=== PATIENT | female | born 1960 | race African-American/Black ===

== ENCOUNTER 2016-08-15 19:10 | Emergency (ER) | payer OTHER ==
--- NOTE | 2016-08-15 19:20 | PDOC ---
[id number] Initial Comments: 08/15/16 20:15 The patient is a 56 year old female with a significant past medical history of HLD and asthma who presents to the Emergency Department with complaints of head pain and neck pain for a few hours. She reports experiencing a sharp pressured pain in the back of her head and neck. She states that her symptoms started few hours ago while she was cooking. She reports taking pain medications for her headache, with no relief. Pt states that she had CT scan and MRI done in [facility] few months ago when she had the same headache, with no significant findings. Pt also reports experiencing intermittent back pain and she states that she was diagnosed with herniated disk in the past. She denies fever, chills, abdominal pain, nausea, vomiting, diarrhea, chest pain , SOB, dizziness, blurry vision. ALL: none (-) sick (+) flu shot <Nereyda Scruggs - Last Filed: 08/15/16 20:14> <Rosalia Jackson - Last Filed: 08/16/16 20:34> - General Chief Complaint: Pain, Acute Stated Complaint: HEAD PAIN Time Seen by Provider: 08/15/16 19:20 Past History <Nereyda Scruggs - Last Filed: 08/15/16 20:14> - Past Medical History Asthma: Yes Hypercholesterolemia: Yes - Immunization History Immunization Up to Date: Yes - Psycho/Social/Smoking Cessation Hx Anxiety: No Suicidal Ideation: No Smoking History: Never smoked Have you smoked in the past 12 months: No Hx Alcohol Use: No Drug/Substance Use Hx: No Substance Use Type: None <Rosalia Jackson - Last Filed: 08/16/16 20:34> - Past Medical History Allergies/Adverse Reactions: Allergies Allergy/AdvReac Type Severity Reaction Status Date / Time No Known Allergies Allergy Verified 08/15/16 19:15 Home Medications: Ambulatory Orders Simvastatin [Zocor -] 40 mg PO HS 08/13/15 Gabapentin [Neurontin -] 100 mg PO DAILY 08/15/16 Naproxen [Naprosyn -] 500 mg PO BID 08/15/16 Review of Systems - Review of Systems Able to Perform ROS?: Yes Comments:: 08/15/16 20:15 GENERAL/CONSTITUTIONAL: No: fever, chills, weakness, loss of appetite. HEAD, EYES, EARS, NOSE AND THROAT: No: change in vision, ear pain, discharge, sore throat, throat swelling. CARDIOVASCULAR: No: chest pain, lightheadedness, palpitations, syncope RESPIRATORY: No: cough, shortness of breath, wheezing, hemoptysis, stridor. GASTROINTESTINAL: No: nausea, vomiting, abdominal cramping, diarrhea, rectal bleeding, constipation. GENITOURINARY: No: dysuria, hematuria, frequency, urgency, flank pain. MUSCULOSKELETAL:Yes: neck pain, back pain No: muscle swelling or pain SKIN AND BREASTS: No: lesions, pallor, rash or easy bruising. NEUROLOGIC: Yes: headache No: vertigo, paresthesias, weakness ENDOCRINE: No: unexplained weight gain or loss HEMATOLOGIC/LYMPHATIC: No: anemia, easy bleeding, swelling nodes All Other Systems: Reviewed and Negative <Nereyda Scruggs - Last Filed: 08/15/16 20:14> *Physical Exam - Vital Signs Last Vital Signs Temp Pulse Resp BP Pulse Ox 98.1 F 94 H 20 160/90 99 08/15/16 19:19 08/15/16 19:19 08/15/16 19:19 08/15/16 19:19 08/15/16 19:19 - Physical Exam Comments: 08/15/16 20:16 GENERAL: The patient is in no acute distress. HEAD: Normal with no signs of trauma. EYES: PERRLA, EOMI, sclera anicteric, conjunctiva clear. ENT: Ears normal, nares patent, oropharynx clear without exudates. Moist mucous membranes. NECK: Normal range of motion, supple without lymphadenopathy, JVD, or masses. LUNGS: Breath sounds equal, clear to auscultation bilaterally. No wheezes, and no crackles. HEART:Regular rate and rhythm, normal S1 and S2 without murmur, rub or gallop. ABDOMEN: Soft, nontender, normoactive bowel sounds. No guarding, no rebound. EXTREMITIES: Normal range of motion, no edema. No clubbing or cyanosis. No erythema, or tenderness. NEUROLOGICAL: Cranial nerves II through XII grossly intact. Normal speech. No focal neurological deficits. MUSCULOSKELETAL: Back non-tender to palpation, no CVA tenderness SKIN: Warm, Dry, normal turgor, no rashes or lesions noted. <Nereyda Scruggs - Last Filed: 08/15/16 20:14> ED Treatment Course - LABORATORY CBC & Chemistry Diagram: 08/15/16 20:06 08/15/16 20:06 <Rosalia Jackson - Last Filed: 08/16/16 20:34> Medical Decision Making - Medical Decision Making 08/15/16 22:56 Patient Name: Sahara Blake THIS IS A PRELIMINARY REPORT FROM [facility] EXAM: CT head noncontrast IMAGES: 70 EXAM DATE AND TIME: 2016-08-15 21:37:19.0 REASON FOR EXAM: Headache COMPARISON: None. FINDINGS: No intra or extra-axial hemorrhage or collection. No mass lesion or midline shift. The ventricles are normal in size and are midline in position. Normal lao-white matter differentiation. The calvarium is intact. 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 THIS DOCUMENT HAS BEEN ELECTRONICALLY SIGNED 08/16/16 20:32 Pt comes with headache. States that she has a history of a chiari malformation and the GARCIA comes on and off. She was treated in the ER and responded well. CT head is WNL. I will refrain from tapping her at this time, as she has a chiari malformation. I discussed this with the patient and asked her to follow with the neurologists. Labs are normal <Rosalia Jackson - Last Filed: 08/16/16 20:34> *DC/Admit/Observation/Transfer - Attestations Scribe Attestion: 08/15/16 20:17 Documentation prepared by Nereyda Scruggs, acting as medical associate for Rosalia Jackson MD. <Nereyda Scruggs - Last Filed: 08/15/16 20:14> - Discharge Dispostion Admit: No <Rosalia Jackson - Last Filed: 08/16/16 20:34> Diagnosis at time of Disposition: Headache - Discharge Dispostion Disposition: HOME Condition at time of disposition: Stable - Referrals Referrals: Jakob Yung MD [Staff Physician] - Andrea Naik MD [Non Staff, Medical] - - Patient Instructions Printed Discharge Instructions: DI for Headache
[2016-08-15 19:21] VITALS: BP 160/90; PULSE 94; TEMP 98.1; BMI 31.3
[2016-08-15] MEDS ORDERED: OXYCODONE/APAP 5/325MG COMBO TABLET PO ONE (20:02)
[2016-08-15] MEDS ORDERED: METOCLOPRAMIDE HCL INJECTION 10 MG/2 ML VIAL IVPB ONE (20:02)
[2016-08-15] MEDS ORDERED: OXYCODONE/APAP 5/325MG COMBO TABLET ONE (20:12)
[2016-08-15] MEDS ORDERED: METOCLOPRAMIDE HCL INJECTION 10 MG/2 ML VIAL ONE (20:12)
[2016-08-15 20:28] LABS: BASOPHIL 2.1 % (0-2.0); EOSINOPHIL 1.6 % (0-4.5); MCH 28.3 pg (25.7-33.7); MCHC 32.8 g/dl (32.0-36.0); MEAN CELL VOLUME 86.2 fl (80-96); MEAN PLT VOLUME 9.7 fl (7.5-11.1); NEUTROPHILS 62.5 % (42.8-82.8); PLATELET COUNT 199 K/MM3 (134-434); RDW 13.9 % (11.6-15.6); WHITE BLOOD COUNT 6.2 K/mm3 (4.0-10.0)
[2016-08-15 20:40] LABS: INR 1.01 (0.82-1.09); PROTHROMBIN TIME (PATIENT) 11.1 SEC (9.98-11.88)
[2016-08-15 21:17] LABS: ALBUMIN 3.7 g/dl (3.4-5.0); BILIRUBIN,TOTAL 0.4 mg/dL (0.2-1.0); CALCIUM 8.8 mg/dL (8.5-10.1)
== END 2016-08-15 23:20 | disposition home or self-care (01) ==
LOC: JER 19:10
PROC: 3E033GC Introduction of Other Therapeutic Substance into Peripheral Vein, Percutaneous Approach (ICD-10-PCS; principal; 2016-08-15)
DX: R51 Headache (principal); Q07.00 Arnold-Chiari syndrome without spina bifida or hydrocephalus; E78.00 Pure hypercholesterolemia, unspecified; J45.909 Unspecified asthma, uncomplicated
CPT/HCPCS: 36415; 70450-TC; 71020-TC; 80053; 85025; 85610; 96374; 96375; 99282-25

== ENCOUNTER 2017-03-31 08:29 | Emergency (ER) | payer OTHER ==
[2017-03-31 08:35] VITALS: BP 116/80; PULSE 76; TEMP 98.9; BMI 31.6
--- NOTE | 2017-03-31 09:24 | PDOC ---
History of Present Illness - General Chief Complaint: Pain Stated Complaint: PAIN/ BACK, ABD Time Seen by Provider: 03/31/17 09:09 History Source: Patient - History of Present Illness Timing/Duration: reports: other Quality: reports: moderate Abdominal Pain Onset Location: reports: suprapubic Pain Radiation: reports: no radiation Past History - Past Medical History Allergies/Adverse Reactions: Allergies Allergy/AdvReac Type Severity Reaction Status Date / Time No Known Allergies Allergy Verified 03/31/17 08:35 Home Medications: Ambulatory Orders Simvastatin [Zocor -] 40 mg PO HS 08/13/15 Gabapentin [Neurontin -] 100 mg PO DAILY 08/15/16 Cephalexin [Keflex] 500 mg PO BID #14 capsule 03/31/17 Asthma: Yes Hypercholesterolemia: Yes - Immunization History Immunization Up to Date: Yes - Psycho/Social/Smoking Cessation Hx Anxiety: No Suicidal Ideation: No Smoking History: Never smoked Have you smoked in the past 12 months: No Information on smoking cessation initiated: No Hx Alcohol Use: No Drug/Substance Use Hx: No Substance Use Type: None Review of Systems - Review of Systems ABD/GI: No: Constipated, Diarrhea, Nausea, Vomiting : Yes: Dysuria, Frequency. No: Hematuria Musculoskeletal: Yes: Back Pain *Physical Exam - Vital Signs Last Vital Signs Temp Pulse Resp BP Pulse Ox 98.9 F 76 18 116/80 99 03/31/17 08:32 03/31/17 08:32 03/31/17 08:32 03/31/17 08:32 03/31/17 08:32 - Physical Exam General Appearance: Yes: Appropriately Dressed. No: Apparent Distress HEENT: positive: Normal Voice Neck: positive: Supple Respiratory/Chest: negative: Respiratory Distress Gastrointestinal/Abdominal: positive: Tender (minimal ttp to mid and L suprapubic area, no ttp to LLQ and no CVAT), Soft Musculoskeletal: positive: Normal Inspection. negative: CVA Tenderness, Vertebral Tenderness Integumentary: positive: Dry, Warm Neurologic: positive: Fully Oriented, Alert, Normal Mood/Affect ED Treatment Course - LABORATORY CBC & Chemistry Diagram: 03/31/17 09:30 03/31/17 09:30 Medical Decision Making - Medical Decision Making 03/31/17 09:20 56 yo F, HLD, endorses h/o chronic back pain and "cold sensation" to back x 2 years, has been evaluated by pmd and neuro w/ no clear diagnosis but was told ? spinal stenosis, currently on oxycodone, here w/ usual back pain x 2 days. Took 1 oxycodone which might have helped but pain returned and pt afraid to take more medications. No LE weakness, B/B incontinence or saddle anesthesia. Also c/ o lower abd pain that started 2 days ago as well and is new for pt and a/w urinary frequency w/ ?dysuria. No hematuria, n/v/f/c. No h/o renal stones See exam Acute on chronic back pain Dx w/?spinal stenosis On oxycodone at home but not taking meds 2/2 ?fear of addiction No e/o cauda equina -pain control in ED and reassess -anticipate dcw/ pmd and neuro f/u Lower abd pain w/ ?dysuria R/o uti, no e/o pyelo, less likely stone or diverticulitis -labs/ua 03/31/17 09:25 03/31/17 10:23 1+ LE on urine, no nit. Ucx sent. Rest of labs neg. Will dc on keflex for ? uti (no prior ucx on records). Pt encouraged to take her pain meds as prescribed and to continue f/u with PMD and neurology for chronic back issues 03/31/17 10:31 03/31/17 10:32 *DC/Admit/Observation/Transfer Diagnosis at time of Disposition: Dysuria, Upper back pain - Discharge Dispostion Disposition: HOME Condition at time of disposition: Good - Prescriptions Prescriptions: Cephalexin [Keflex] 500 mg PO BID #14 capsule - Referrals Referrals: Hair Carlton [Primary Care Provider] - Jakob Yung MD [Staff Physician] - - Patient Instructions Printed Discharge Instructions: Urinary Tract Infection Additional Instructions: Take medication as directed Take your pain medications as needed Follow up with your PMD and Dr Yung of neurology
[2017-03-31 09:34] LABS: URINE APPEARANCE SLCLOUDY; URINE BILIRUBIN NEGATIVE (NEGATIVE); URINE BLOOD NEGATIVE (NEGATIVE); URINE COLOR DKYELLOW; URINE GLUCOSE (UA) NEGATIVE (NEGATIVE); URINE KETONE NEGATIVE (NEGATIVE); URINE NITRITE NEGATIVE (NEGATIVE); URINE PROTEIN NEGATIVE (NEGATIVE); URINE UROBILINOGEN NEGATIVE mg/dL (0.2-1.0)
[2017-03-31 09:39] LABS: URINE LEUK ESTERASE 1+ (NEGATIVE)
[2017-03-31 09:40] LABS: URINE BACTERIA FEW /hpf (NONE SEEN); URINE MUCUS RARE; URINE RBC <1 /hpf (0-3); URINE WBC 2 /hpf (3-5)
[2017-03-31 09:41] LABS: BASOPHIL 0.7 % (0-2.0); MCH 28.1 pg (25.7-33.7); MCHC 32.3 g/dl (32.0-36.0); MEAN CELL VOLUME 86.9 fl (80-96); MEAN PLT VOLUME 9.1 fl (7.5-11.1); NEUTROPHILS 71.9 % (42.8-82.8); PLATELET COUNT 245 K/MM3 (134-434); RDW 14.8 % (11.6-15.6); WHITE BLOOD COUNT 6.5 K/mm3 (4.0-10.0)
[2017-03-31 10:05] LABS: ALBUMIN 3.7 g/dl (3.4-5.0); ANION GAP 4 (8-16); CALCIUM 9.3 mg/dL (8.5-10.1); CO2 34 mmol/L (21-32); GLUCOSE,RANDOM 76 mg/dL (74-106)
[2017-03-31 10:09] LABS: ALK PHOS 51 U/L (45-117); BILIRUBIN,TOTAL 0.8 mg/dL (0.2-1.0); CREATININE 0.9 mg/dL (0.55-1.02); SGPT/ALT 27 U/L (12-78); TOT PROT 7.4 g/dl (6.4-8.2)
[2017-03-31 10:18] LABS: SGOT/AST 17 U/L (15-37)
== END 2017-03-31 10:41 | disposition home or self-care (01) ==
LOC: JER 08:29
DX: N39.0 Urinary tract infection, site not specified (principal); R30.0 Dysuria; E78.00 Pure hypercholesterolemia, unspecified; J45.909 Unspecified asthma, uncomplicated
CPT/HCPCS: 36415; 80053; 81003; 81015; 83690; 85025; 87086; 99282-25

== ENCOUNTER 2021-07-03 05:02 | Day surgery (SDC) | payer OTHER ==
[2021-07-02 14:02] VITALS: BMI 31.6
[2021-07-03 08:42] VITALS: TEMP 97.2
[2021-07-03 09:14] VITALS: BP 138/78; PULSE 62
== END 2021-07-03 09:20 | disposition home or self-care (01) ==
LOC: JASU-ENDO 05:02
PROVIDERS: ATTEND Internal Medicine Gastroenterology
PROC: 0DBL8ZX Excision of Transverse Colon, Via Natural or Artificial Opening Endoscopic, Diagnostic (ICD-10-PCS; 2021-07-03)
PROC: 0DBF8ZX Excision of Right Large Intestine, Via Natural or Artificial Opening Endoscopic, Diagnostic (ICD-10-PCS; principal; 2021-07-03 08:00)
DX: Z12.11 Encounter for screening for malignant neoplasm of colon (principal); D12.3 Benign neoplasm of transverse colon; D17.5 Benign lipomatous neoplasm of intra-abdominal organs
CPT/HCPCS: 88305-TC

== ENCOUNTER 2022-03-27 01:32 | Emergency (ER) | payer OTHER ==
[2022-03-27 01:54] VITALS: BP 132/81; PULSE 88; RESP 20; TEMP 98.4; BMI 29.9
[2022-03-27 06:03] LABS: BASO % 0.4 % (0-2.0); EOS % 0.9 % (0-4.5); HEMOGLOBIN 12.5 GM/dL (10.7-15.3); LYMPH % 13.4 % (8-40); MCH 28.1 pg (25.7-33.7); MCHC 32.1 g/dl (32.0-36.0); MEAN CELL VOLUME 87.7 fl (80-96); MONO % 7.5 % (3.8-10.2); NEUT % 77.8 % (42.8-82.8); PLATELET COUNT 230 10^3/uL (134-434); RBC 4.45 M/mm3 (3.60-5.2); RDW 14.2 % (11.6-15.6); WHITE BLOOD COUNT 7.7 K/mm3 (4.0-10.0)
[2022-03-27 07:22] LABS: BLOOD UREA NITROGEN 18.6 mg/dL (7-18)
[2022-03-27 07:23] LABS: CALCIUM 9.1 mg/dL (8.5-10.1)
[2022-03-27 07:24] LABS: MAGNESIUM 2.3 mg/dL (1.8-2.4)
[2022-03-27 07:26] LABS: CREATININE 0.8 mg/dL (0.55-1.3)
[2022-03-27 07:27] LABS: BILIRUBIN,TOTAL 0.6 mg/dL (0.2-1); TOT PROT 7.2 g/dl (6.4-8.2)
== END 2022-03-27 06:50 | disposition home or self-care (01) ==
LOC: JER 01:32
DX: R25.2 Cramp and spasm (principal)
CPT/HCPCS: 36415; 80053; 83735; 85025; 99283-25